=== PATIENT | female | born 1995 | race Caucasian/White ===

== ENCOUNTER 2018-02-10 00:15 | Emergency (ER) | payer MEDICAID, OTHER ==
[2018-02-10] MEDS: LIDOCAINE 1% (MDV) 20 ML INJ SC (01:55)
== END 2018-02-10 02:26 | disposition home or self-care (01) ==
LOC: FTE 00:15
DX: N75.0 Cyst of Bartholin's gland (principal)
CPT/HCPCS: 56420; 99284-25

== ENCOUNTER 2019-03-11 15:18 | Emergency (ER) | payer MEDICAID ==
[2019-03-11] MEDS: DIPHTH/TET/ACEL PERTUSS (ADULT) 0.5 ML VIAL IM* (15:50)
== END 2019-03-11 17:50 | disposition home or self-care (01) ==
LOC: FTE 15:18
DX: S31.815A Open bite of right buttock, initial encounter (principal); W54.0XXA Bitten by dog, initial encounter; Y92.9 Unspecified place or not applicable; Z23 Encounter for immunization
CPT/HCPCS: 90471; 90715; 99283-25